=== PATIENT | male | born 1980 | race Two or more races ===

== ENCOUNTER → 2024-01-04 08:21 | Outpatient (RCR) | payer OTHER, SELFPAY | END | disposition home or self-care (01) | LOC: HO.WCC 06-23 13:55 | PROVIDERS: PCP Internal Medicine; Visit Provider Physician Assistant | DX: S31.104D Unspecified open wound of abdominal wall, left lower quadrant without penetration into peritoneal cavity, subsequent encounter (principal); K94.09 Other complications of colostomy; L24.5 Irritant contact dermatitis due to other chemical products; J44.9 Chronic obstructive pulmonary disease, unspecified; F17.210 Nicotine dependence, cigarettes, uncomplicated; Z86.711 Personal history of pulmonary embolism | CPT/HCPCS: 99213 ==